=== PATIENT | male | born 1930 | race Caucasian/White ===

== ENCOUNTER 2018-10-05 18:58 | Emergency (ER) | payer OTHER, BC ==
--- OUTSIDE RECORDS SUMMARY | 2018-10-05 19:00 | XMS REPORT | Continuity of Care Document ---
:1930 Author Organization Interface Problems Problem Status Onset Date Classification Date Comments Source Reported Medications Medication Details Route Status Patient Ordering Order Source Instructions Provider Date Allergies, Adverse Reactions, Alerts Substance Category Reaction Severity Reaction Status Date Comments Source type Reported Immunizations Immunization Date Given Site Status Last Updated Comments Source Results Order Results Value Reference Date Interpretation Comments Source Name Range Vital Signs Vital Sign Value Date Comments Source Encounters Location Location Encounter Encounter Reason Attending ADM DC Status Source Details Type Number For Provider Date Date Visit Outpatient [id number] JOYCE 05/31 Active [facility] Outpatient [id number] JOYCE 09/27 Active [facility] [place] Out[facility] [id number] JOYCE 11/08 Active [facility] [place] Outpatient [id number] JOYCE 12/19 Active [facility] [place] Outpatient [id number] JOYCE 04/10 Active [facility] Outpatient [id number] Joyce 08/14 Active [facility] Outpatient [id number] Joyce 10/16 Active [facility] Procedures Procedure Code Date Perfomer Comments Source
[2018-10-05] MEDS ORDERED: FENTANYL CITR 100 MCG/2 ML ONE (19:25)
[2018-10-05] MEDS ORDERED: TETANUS & DIPHTHERIA TOX,ADULT 0.5 ML VIAL ONE (19:25)
--- NOTE | 2018-10-05 20:03 | RAD REPORT ---
EXAM DESCRIPTION: RAD - Elbow Right 3 View - 10/05/2018 7:38 pm CLINICAL HISTORY: Pain;Smash injury COMPARISON: <Comparisons> FINDINGS: Comminuted and significantly displaced olecranon fracture is present with adjacent soft ti ssue swelling. No dislocation evident.
--- NOTE | 2018-10-05 20:04 | RAD REPORT ---
EXAM DESCRIPTION: CT - [id number] - 10/05/2018 7:39 pm CLINICAL HISTORY: Trauma, head and neck injury. SMASH INJURY COMPARISON: CT MULTIPLANAR RECONSTRUCTION dated 01/26/2012 TECHNIQUE: Axial 5 mm thick images of the head were obtained. Axial 2 mm thick images of the cervical spine were obtained with sagittal and coronal reconstruction images generated and reviewed. All CT scans are performed using dose optimization technique as appropriate and may include automated exposure control or mA/KV adjustment according to patient size. FINDINGS: CT HEAD WITHOUT CONTRAST: No acute hemorrhage, hydrocephalus or extra-axial collection is identified.Moderate generalized brain atrophy is present with moderate periventricular and deep white matter chronic microvascular ischemi c changes.No areas of brain edema or midline shift. The paranasal sinuses and mastoids are clear.The calvarium is intact. CT CERVICAL SPINE WITHOUT CONTRAST: No fracture or subluxation.Multilevel degenerative changes are present throughout the mid and lower c ervical spine levels.No prevertebral soft tissues swelling is identified. IMPRESSION: No acute intracranial or cervical spine findings.
--- NOTE | 2018-10-05 20:09 | ER ---
Nurse's Notes [facility] Name: Jayce Nielsen Age: 87 yrs Sex: Male : 1930 Arrival Date: 10/05/2018 Time: 19:01 Bed 20 Private MD: Diagnosis: Displaced fracture of olecranon process without intraarticular extension of right ulna;Fall on same level, unspecified Presentation: 10/05 19:06 Presenting complaint: EMS states: called out for fall, has Parkinson's and lost em balance, pain in right elbow, swelling noted to elbow with abrasion, denies LOC. Transition of care: patient was not received from another setting of care. Onset of symptoms was October 05, 2018. Risk Assessment: Do you want to hurt yourself or someone else? Patient reports no desire to harm self or others. Initial Sepsis Screen: Does the patient meet any 2 criteria? No. Patient's initial sepsis screen is negative. Does the patient have a suspected source of infection? No. Patient's initial sepsis screen is negative. Care prior to arrival: None. 19:06 Method Of Arrival: EMS: [facility] em 19:18 Acuity: TOM 3 ed1 Historical: - Allergies: 19:14 Levaquin; em 19:14 Bactrim; em - Home Meds: 20:00 Latanaprost 1 drop nightly [Active]; Timalol 2 drop twice a day [Active]; Linzess 145 ed1 mcg oral cap 1 cap once daily [Active]; Miralax Oral 2 scoop every other day in the PM [Active]; carbidopa-levodopa 10-100 mg Oral tab 3 tabs twice a day [Active]; pramipexole 0.25 mg oral tab 1 tab twice a day [Active]; galantamine 4 mg oral tab 1 tab 2 times per day [Active]; - PMHx: 19:14 Parkinsons; chronic constipation; degenerative arthritis; em - PSHx: 19:14 Hernia repair; em - Immunization history:: Last tetanus immunization: < 5 years ago. - Social history:: Smoking status: Patient/guardian denies using tobacco. - Ebola Screening: : Patient negative for fever greater than or equal to 101.5 degrees Fahrenheit, and additional compatible Ebola Virus Disease symptoms Patient denies exposure to infectious person Patient denies travel to an Ebola-affected area in the 21 days before illness onset No symptoms or risks identified at this time. Screenin:27 Abuse screen: Denies threats or abuse. Denies injuries from another. Nutritional ed1 screening: No deficits noted. Tuberculosis screening: No symptoms or risk factors identified. Fall Risk Fall in past 12 months (25 points). Secondary diagnosis (15 points) impaired mobility, IV access (20 points). Ambulatory Aid- Crutches/Cane/Walker (15 pts). Gait- Impaired (20 pts.). Mental Status- Oriented to own ability (0 pts). Total Alicia Fall Scale indicates High Risk Score (45 or more points). Fall prevention measures have been instituted. Side Rails Up X 2 Frequent Obs/Assessments Occuring Family Present and informed to notify staff if the need to leave the bedside As available patient and family educated on Fall Prevention Program and Strategies. Assessment: 19:25 General: Appears uncomfortable, Behavior is calm, cooperative. Pain: Complains of pain ed1 in right elbow Pain currently is 10 out of 10 on a pain scale. Quality of pain is described as sharp, throbbing, Pain began 30 min ago. Is continuous. Neuro: Level of Consciousness is awake, alert, obeys commands, Oriented to person, place, time, situation. Cardiovascular: Denies chest pain, Heart tones S1 S2 present. Respiratory: Airway is patent Respiratory effort is even, unlabored, Respiratory pattern is regular, symmetrical, Breath sounds are clear bilaterally. Denies cough, shortness of breath. GI: No deficits noted. : No deficits noted. EENT: No deficits noted. Derm: Wound noted right elbow Wound is abrasion. Musculoskeletal: Capillary refill < 3 seconds, in bilateral fingers. Swelling present in right elbow. 20:25 Reassessment: Patient appears in no apparent distress at this time. Patient and/or ed1 family updated on plan of care and expected duration. Pain level reassessed. Patient is alert, oriented x 3, equal unlabored respirations, skin warm/dry/pink. Patient states feeling better. Patient states symptoms have improved. Vital Signs: 19:14 BP 176 / 83; Pulse 63; Resp 18; Temp 97.9(O); Pulse Ox 95% on R/A; Weight 95.25 kg; ed1 Height 5 ft. 3 in. (160.02 cm); Pain 10/10; 20:25 BP 149 / 84; Pulse 71; Resp 17; Temp 97.9(O); Pulse Ox 100% on R/A; Pain 7/10; ed1 19:14 Body Mass Index 37.20 (95.25 kg, 160.02 cm) ed1 ED Course: 19:01 Patient arrived in ED. snw 19:02 [facility]C [facility] snw 19:02 Franklyn Urena MD is Attending Physician. snw 19:08 Annabelle Prajapati, JAYLIN is Primary Nurse. ed1 19:14 Arm band placed on. em 19:18 Triage completed. ed1 19:[address] via stretcher. ed1 19:27 Patient has correct armband on for positive identification. Bed in low position. Call ed1 light in reach. Side rails up X2. Adult w/ patient. 19:38 Elbow Right 3 View XRAY In Process Unspecified. EDMS 19:39 CT Head C Spine In Process Unspecified. EDMS 19:39 CT completed. Patient tolerated procedure well. Patient moved back from CT. bq 20:07 Kapil Mancini MD is Referral Physician. snw 20:25 No provider procedures requiring assistance completed. Patient did not have IV access ed1 during this emergency room visit. 20:29 Orthoglass splint: posterior elbow Sling applied to right arm. 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 Exp: ed1 07/13/2020. Lot #: [id number]. } Route: IM; Site: left deltoid; 20:28 Follow up: Response: No adverse reaction ed1 Outcome: 20:09 Discharge ordered by . snw 20:30 Discharged to home via wheelchair, with family. ed1 20:30 Condition: good 20:30 Discharge instructions given to patient, family, Instructed on discharge instructions, follow up and referral plans. medication usage, splint care Demonstrated understanding of instructions, follow-up care, medications, splint care, Prescriptions given X 1. 20:31 Patient left the ED. ed1 Signatures: Dispatcher [employer] EDMS Laya Jones, BOAT LOADER HELPER-C BOAT LOADER HELPER-Csnw Irasema Mccord Edgar, IMMIGRATION PARALEGAL IMMIGRATION PARALEGAL em Annabelle Prajapati, RN RN ed1 Corrections: (The following items were deleted from the chart) 19:27 19:14 BP 176 / 83; Pulse 63bpm; Resp 18bpm; Pulse Ox 95% RA; 95.25 kg; Height 5 ft. 3 ed1 in.; BMI: 37.2; Pain 10/10; em 20:00 19:14 Home Meds: tramadol 50 mg Oral tab; em ed1 20:00 19:14 Home Meds: Carbidopa-Levodopa Oral; em ed1 20:00 19:14 Home Meds: pramipexole 0.25 mg oral tab; em ed1 20:00 19:14 Home Meds: galantamine oral oral; em ed1
--- NOTE | 2018-10-05 20:09 | EDPHYS ---
Physician Documentation [facility] Name: Jayce Nielsen Age: 87 yrs Sex: Male : 1930 Arrival Date: 10/05/2018 Time: 19:01 Bed 20 Private MD: ED Physician Franklyn Urena HPI: 10/05 19:10 This 87 yrs old Male presents to ER via EMS with complaints of fall, elbow snw pain. 19:10 The patient or guardian complains of an abrasion, contusion, decreased range of motion, snw injury, pain, that is acute. The complaints affect the right elbow. Context: The problem was sustained at home, resulted from a fall, mis-step (hx of Parkinson's). Onset: The symptoms/episode began/occurred suddenly. Treatment prior to arrival includes: sling. Associated signs and symptoms: Pertinent positives: decreased range of motion, pain, swelling. Severity of symptoms: At their worst the symptoms were moderate. The patient has not experienced similar symptoms in the past. It is unknown whether or not the patient has recently seen a physician. Historical: - Allergies: 19:14 Levaquin; em 19:14 Bactrim; em - Home Meds: 20:00 Latanaprost 1 drop nightly [Active]; Timalol 2 drop twice a day [Active]; Linzess 145 ed1 mcg oral cap 1 cap once daily [Active]; Miralax Oral 2 scoop every other day in the PM [Active]; carbidopa-levodopa 10-100 mg Oral tab 3 tabs twice a day [Active]; pramipexole 0.25 mg oral tab 1 tab twice a day [Active]; galantamine 4 mg oral tab 1 tab 2 times per day [Active]; - PMHx: 19:14 Parkinsons; chronic constipation; degenerative arthritis; em - PSHx: 19:14 Hernia repair; em - Immunization history:: Last tetanus immunization: < 5 years ago. - Social history:: Smoking status: Patient/guardian denies using tobacco. - Ebola Screening: : Patient negative for fever greater than or equal to 101.5 degrees Fahrenheit, and additional compatible Ebola Virus Disease symptoms Patient denies exposure to infectious person Patient denies travel to an Ebola-affected area in the 21 days before illness onset No symptoms or risks identified at this time. ROS: 19:09 Constitutional: Negative for fever, chills, and weight loss, Eyes: Negative for injury, snw pain, redness, and discharge, ENT: Negative for injury, pain, and discharge, Neck: Negative for injury, pain, and swelling, Cardiovascular: Negative for chest pain, palpitations, and edema, Respiratory: Negative for shortness of breath, cough, wheezing, and pleuritic chest pain, Abdomen/GI: Negative for abdominal pain, nausea, vomiting, diarrhea, and constipation, Back: Negative for injury and pain, : Negative for injury, bleeding, discharge, and swelling, Skin: Negative for injury, rash, and discoloration, Neuro: Negative for headache, weakness, numbness, tingling, and seizure. 19:09 MS/extremity: Positive for injury or acute deformity, decreased range of motion, pain, swelling, of the right elbow. Exam: 19:07 Head/Face: Normocephalic, atraumatic. Eyes: Pupils equal round and reactive to light, snw extra-ocular motions intact. Lids and lashes normal. Conjunctiva and sclera are non-icteric and not injected. Cornea within normal limits. Periorbital areas with no swelling, redness, or edema. ENT: Nares patent. No nasal discharge, no septal abnormalities noted. Tympanic membranes are normal and external auditory canals are clear. Oropharynx with no redness, swelling, or masses, exudates, or evidence of obstruction, uvula midline. Mucous membranes moist. Neck: Trachea midline, no thyromegaly or masses palpated, and no cervical lymphadenopathy. Supple, full range of motion without nuchal rigidity, or vertebral point tenderness. No Meningismus. Chest/axilla: Normal chest wall appearance and motion. Nontender with no deformity. No lesions are appreciated. Cardiovascular: Regular rate and rhythm with a normal S1 and S2. No gallops, murmurs, or rubs. Normal PMI, no JVD. No pulse deficits. Respiratory: Lungs have equal breath sounds bilaterally, clear to auscultation and percussion. No rales, rhonchi or wheezes noted. No increased work of breathing, no retractions or nasal flaring. Abdomen/GI: Soft, non-tender, with normal bowel sounds. No distension or tympany. No guarding or rebound. No evidence of tenderness throughout. Back: No spinal tenderness. No costovertebral tenderness. Full range of motion. Neuro: Awake and alert, GCS 15, oriented to person, place, time, and situation. Cranial nerves II-XII grossly intact. Motor strength 5/5 in all extremities. Sensory grossly intact. Cerebellar exam normal. Normal gait. 19:07 Constitutional: The patient appears alert, awake. 19:07 Musculoskeletal/extremity: Extremities: grossly normal except: noted in the right elbow: contusion, decreased ROM, pain, swelling, tenderness, Circulation is intact in all extremities. Sensation intact. 19:07 Skin: Appearance: normal except for affected area, injury, abrasion(s), small abrasion noted, of the right elbow, contusion(s), that are deep, of the right elbow. Vital Signs: 19:14 BP 176 / 83; Pulse 63; Resp 18; Temp 97.9(O); Pulse Ox 95% on R/A; Weight 95.25 kg; ed1 Height 5 ft. 3 in. (160.02 cm); Pain 10/10; 20:25 BP 149 / 84; Pulse 71; Resp 17; Temp 97.9(O); Pulse Ox 100% on R/A; Pain 7/10; ed1 19:14 Body Mass Index 37.20 (95.25 kg, 160.02 cm) ed1 MDM: 19:02 Patient medically screened. snw 20:00 Physician consultation: Kapil Mancini MD was called at 20:00, was contacted at snw 20:15, regarding consult, outpatient follow-up, Sunday in well padded splint. 20:13 Data reviewed: vital signs, nurses notes. Data interpreted: Pulse oximetry: on room air snw is 95 %. Interpretation: normal. Counseling: I had a detailed discussion with the patient and/or guardian regarding: the historical points, exam findings, and any diagnostic results supporting the discharge/admit diagnosis, the presence of at least one elevated blood pressure reading (>120/80) during this emergency department visit, radiology results, the need for outpatient follow up, to return to the emergency department if symptoms worsen or persist or if there are any questions or concerns that arise at home. Special discussion: I have referred the patient to see his PCP for further evaluation of high blood pressure. Based on the history and exam findings, there is no indication for further emergent testing or inpatient evaluation. I discussed with the patient/guardian the need to see the orthopedic surgeon for further evaluation of the symptoms. I discussed with the patient/guardian the need to see the primary care provider for further evaluation of the symptoms. 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 Exp: ed1 07/13/2020. Lot #: [id number]. } Route: IM; Site: left deltoid; 20:28 Follow up: Response: No adverse reaction ed1 Disposition: 10/05/18 20:09 Discharged to Home. Impression: Displaced fracture of olecranon process without intraarticular extension of right ulna, Fall on same level, unspecified. - Condition is Stable. - Discharge Instructions: Elastic Bandage and RICE, Cast or Splint Care, Adult, Fall Prevention in the Home, Ulnar Fracture, How to Use a Sling. - Prescriptions for Ultram 50 mg Oral Tablet - take 1 tablet by ORAL route every 6 hours As needed; 14 tablet. - Medication Reconciliation Form, Thank You Letter, Antibiotic Education, Prescription Opioid Use form. - Follow up: Kapil Mancini MD; When: Sunday; Reason: Recheck today's complaints, Continuance of care. Addendum: 10/07/2018 08:25 Co-signature as Attending Physician, Franklyn Urena MD I agree with the assessment and c mosquera plan of care. Signatures: Dispatcher [employer] Franklyn Morrow MD MD cha Therrien, Shelly, CASING MATERIAL WEIGHER-C CASING MATERIAL WEIGHER-Csnw Aron Whiting, [employer] DISTRICT SUPERVISOR [employer]ODU[employer] DISTRICT SUPERVISOR em Annabelle Prajapati RN RN ed1 Corrections: (The following items were deleted from the chart) 10/05 20:00 19:14 Home Meds: tramadol 50 mg Oral tab; em ed1 20:00 19:14 Home Meds: Carbidopa-Levodopa Oral; em ed1 20:00 19:14 Home Meds: pramipexole 0.25 mg oral tab; em ed1 20:00 19:14 Home Meds: galantamine oral oral; em ed1 20:31 20:09 10/05/2018 20:09 Discharged to Home. Impression: Displaced fracture of olecranon ed1 process without intraarticular extension of right ulna; Fall on same level, unspecified. Condition is Stable. Forms are Medication Reconciliation Form, Thank You Letter, Antibiotic Education, Prescription Opioid Use. Follow up: Kapil Mancini; When: Sunday; Reason: Recheck today's complaints, Continuance of care. snw
[2018-10-05 20:34] VITALS: TEMP 97.9
[2018-10-05 20:35] VITALS: BP 149/84; O2SAT 100
== END 2018-10-05 20:31 | disposition home or self-care (01) ==
LOC: ER 18:58
PROC: 2W38X1Z Immobilization of Right Upper Extremity using Splint (ICD-10-PCS; principal; 2018-10-05)
DX: S52.021A Displaced fracture of olecranon process without intraarticular extension of right ulna, initial encounter for closed fracture (principal); W01.0XXA Fall on same level from slipping, tripping and stumbling without subsequent striking against object, initial encounter; Y92.009 Unspecified place in unspecified non-institutional (private) residence as the place of occurrence of the external cause; Z88.1 Allergy status to other antibiotic agents; Z23 Encounter for immunization; G20 Parkinson's disease
CPT/HCPCS: 70450; 72125; 73080; 90471; 90714; 96372; 99284; 29105; J3010